=== PATIENT | male | born 1995 | race Caucasian/White ===

== ENCOUNTER 2025-04-11 07:48 | Day surgery (SDC) | payer OTHER, SELFPAY ==
--- NOTE | ~2025-04-11 | XR_ITS ---
XR fluoroscopy no charge Indication:Left L5-S1 transforaminal epidural steroid injection TECHNIQUE: Fluoroscopy used during Left L5-S1 transforaminal epidural steroid injection performed by [Adam Sánchez MD] on 04/11/2025. 32 seconds of fluoroscopy with 3 fluoroscopic images capture d. FINDINGS: Correlate with procedure note. IMPRESSION: Fluoroscopy used during Left L5-S1 transforaminal epidural steroid injection. Reviewed, dictated and finalized at location A.
--- OUTSIDE RECORDS SUMMARY | 2025-04-11 08:00 | XMS_ITS | Clinical Summary ---
Author Organization [facility] Address [address] [place] [address] Care Team Providers Care License Registration Examiner Name Role Phone Nichole Guerrero CARLI Primary Care Provider [phone] Allergies Active Allergy Reactions Criticality Noted Date Comments Lisinopril Rash Low 09/25/2021 Medications triamcinolone 0.1 % ointmentIndicatio ns:Eczema, dyshidrotic Apply topically 2 (two) times daily. 30 g 2 06/13/20 19 Active ondansetron 4 MG disintegrating tabletIndications :Influenza Take 1 tablet (4 mg total) by mouth every 6 (six) hours as needed for Nausea. 20 tablet 10/05/19 20 Active lisinopril 10 MG tabletIndications :Essential hypertension Take 1 tablet (10 mg total) by mouth daily. 90 tablet 3 04/23/20 21 Active albuterol (2.5 MG/3ML) 0.083% nebulizer solutionIndicatio ns:Wheezing Take 3 mLs (2.5 mg total) by nebulization every 4 (four) hours as needed for Wheezing. 360 mL 11 05/03/20 21 Active colchicine 0.6 MG tabletIndications :Acute gout involving toe, unspecified cause, unspecified laterality Take 1 tablet (0.6 mg total) by mouth see administration instructions. Take two tablets now and one in a hour 3 tablet 1 09/01/20 21 Active fluticasone-salme terol (ADVAIR DISKUS) 100-50 MCG/ACT inhalerIndication s:Mild intermittent asthma without complication (HHS/HCC),Post-CO VID chronic cough Inhale 1 puff into the lungs 2 (two) times daily. 60 each 11 06/09/20 23 Active Albuterol-Budeson harvey (AIRSUPRA) 90-80 MCG/ACT AerosolIndication s:Wheezing,Mild intermittent asthma with acute exacerbation (HHS/HCC) Inhale 2 Inhalations into the lungs 6 (six) times daily. As needed for wheezing or sob 10.7 g 05/05/20 24 Active methocarbamol (ROBAXIN) 750 MG TabIndications:Ac taqueria bilateral low back pain with right-sided sciatica Take 1-2 tablets (750-1,500 mg total) by mouth 3 (three) times daily as needed (muscle spasms). 90 tablet 1 06/14/20 24 Active busPIRone (BUSPAR) 30 MG tabletIndications :Anxiety Take 1 tablet (30 mg total) by mouth daily. 90 tablet 3 10/03/19 25 Active lamoTRIgine (LAMICTAL) 150 MG tabletIndications :Anxiety Take 1 tablet (150 mg total) by mouth 2 (two) times daily. 180 tablet 3 10/03/19 25 Active cyclobenzaprine (FLEXERIL) 5 MG tabletIndications :Chronic left-sided low back pain with left-sided sciatica Take 1-2 tablets (5-10 mg total) by mouth nightly as needed for Muscle Spasms. 30 tablet 02/19/20 25 Active methylPREDNISolon e, VAHE, (MEDROL DOSEPAK) 4 MG tabletIndications :Chronic left-sided low back pain with left-sided sciatica Take 1 tablet (4 mg total) by mouth see administration instructions. 6 TABLETS ON DAY ONE, 5 TABLETS DAY TWO, 4 TABLETS DAY THREE, 3 TABLETS DAY FOUR, 2 TABLETS DAY FIVE, AND 1 TABLET DAY SIX 1 each 03/22/20 25 Active predniSONE (DELTASONE) 10 mg tabletIndications :Chronic left-sided low back pain with left-sided sciatica Take 1 tablet (10 mg total) by mouth see administration instructions. Take 40 mg for 3 days, 30 mg for 3 days, 20 mg for 3 days, and 10 mg for 3 days. 30 tablet 02/19/20 25 025 Disconti nukane(The rapy complete d) Active Problems Problem Noted Date Diagnosed Date Class 2 severe obesity due t o excess calories with serious comorbidity and body mass index (BMI) of 39.0 to 39.9 in adult 02/21/2025 Chronic left-sided low back pain with left-sided sciatica 02/18/2025 Essential hypertension 09/26/2021 Hyperlipidemia 12/25/2016 Vitamin D deficiency 12/25/2016 Benign essential hypertension 12/03/2016 Bipolar disorder with depression ([facility]/ [facility]) 12/03/2016 Drug addiction in remission ([facility]) Generalized anxiety disorder 12/03/2016 History of drug abuse 12/03/2016 Encounters Date Type Department Care Team Description 03/29/2025 Scan HEALTH INFO SRVCS Scanned, Doc Med Group 03/22/2025 Orders Only [facility] Internal [address] [address] Nichole Guerrero FNP 03/15/2025 1:47 PM CDT - 03/15/2025 11:59 PM CDT Hospital Encounter [facility] [address] [place] [address] Nichole Guerrero FNP Discharge Disposition: Home or Self Care (Routine Discharge) 03/15/2025 Results Follow-Up [facility] Internal [address] [address] Nichole Guerrero FNP MRI LUMB SPINE WO CON 03/15/2025 Travel 03/08/2025 Orders Only [facility] Internal [address] [address] Nichole Guerrero FNP 02/21/2025 Results Follow-Up [address] [address] Nichole Guerrero, CARLI URINALYSIS AUTO DIP, MAGNESIUM, FOLIC ACID SERUM, Additional followed-up results: 7 02/18/2025 1:00 PM CDT Office Visit [facility] Internal [address] [address] Nichole Guerrero FNP Low Back Pain (Patient presenting to office today c/o lower back pain primarily on the left side that radiated to the hip and into the knee- onset intermittent for about 6 months sx are getting worse- pain rating 6/10- describes pain as achy with random sharp pains denies any abnormal urinary sx ) 02/18/2025 Scan HEALTH INFO SRVCS Scanned, Doc Med Group 02/18/2025 Travel 02/16/2025 4:58 PM CDT - 02/16/2025 11:59 PM CDT Hospital Encounter [facility] [address] [place] [address] Nichole Guerrero FNP Discharge Disposition: Home or Self Care (Routine Discharge) 02/16/2025 Travel 02/08/2025 Orders Only [facility] Family & Internal Medicine [address] [place] [address] Nichole Guerrero FNP from Last 3 Months Immunizations Immunization Administration Dates Next Due Fluzone 6 Months+ Quad (0.5 mL Prefilled Syringe ) 09/25/2021 PFIZER COVID-19 (ORIGINAL FO RMULATION, PURPLE CAP) mRNA, LNP-S, PF, 30 MCG/0.3 ML DOSE 06/11/2021,05/21/2021 Tdap (Adacel) 09/25/2021 Family History Medical History Relation Comments Asthma Daughter Heart Disease Maternal Grandfather Hypertension Maternal Grandfather Alcohol Abuse Mother Depression Mother Drug Abuse Mother Mental Health Mother Relation Status Comments Daughter Alive Maternal Grandfather Alive Mother Alive Social History Tobacco Use Types Packs/Day Years Used Date Smoking Tobacco: Former Electronic Cigarettes Smokeless Tobacco: Never Tobacco Cessation:Counseling Given: Not Answered Alcohol Use Standard Drinks/Week Comments No 0 (1 standard drink = 0.6 oz pur e alcohol) AUDIT-C Answer Date Recorded Frequency of Alcohol Consumption Never 05/25/2019 Average Number of Drinks Not on file 019 Frequency of Binge Drinking Not on file 11/2018 PHQ-2 Answer Date Recorded Patient Health Questionnaire-2 Score 0 02/18/2025 Sex and Gender Information Value Date Recorded Sex Assigned at Male 02/18/2025 1:08 PM CDT Legal Sex Male 4:32 PM CDT Gender Identity Male 02/18/2025 1:08 PM CDT Sexual Orientation Straight 02/18/2025 1: 08 PM CDT Last Filed Vital Signs Vital Sign Reading Time Taken Comments Blood Pressure 138/88 02/18/2025 1:15 PM CDT Pulse 62 02/18/2025 1:15 PM CDT Temperature 37.3 C (99.1 F) 02/18/2025 1:15 PM CDT Respiratory Rate 18 02/18/2025 1:15 PM CDT Oxygen Saturation 98% 02/18/2025 1:15 PM CDT Inhaled Oxygen Concentration - - Weight 118.8 kg (262 lb) 02/18/2025 1:15 PM CDT Height 172.7 cm (5' 8) 02/18/2025 1:15 PM CDT Body Mass Index 39.84 02/18/2025 1:15 PM CDT Plan of Treatment Health Maintenance Due Date Last Done Comments Hepatitis B Vaccines (1 of 3 - 19+ 3-dose series) 2013 HPV Vaccines (1 - 3-dose SCD M series) 2021 Annual Physical 02/18/2026 02/18/2025 COVID-19 Vaccine (3 - 2023-2 5 season) 2026 06/11/2021, 05/21/2021 Postponed from 2024 (Patient Refused) Pneumococcal Vaccine: Pediatrics (0 to 5 Years) and At-Risk Patients (6 to 49 Years) (1 of 2 - PCV) 02/18/2026 Postponed from 09/2012 (Patient Refused) DTaP, Tdap and Td Vaccines ( 2 - Td or Tdap) 09/25/2031 09/25/2021 Hepatitis C Completed 09/25/2021 PHQ-2 (Physician [place]) Completed 02/18/2025 Meningococcal B Vaccine Aged Out No l onger eligible based on patient's age to complete this topic Meningococcal Vaccine Aged Out No nivia nedra eligible based on patient's age to complete this topic RSV Immunizations Under 20 Months Aged Out No longer eligible b ased on patient's age to complete this topic Procedures Procedure Name Priority Date/Time Associated Diagnosis Comments MRI LUMB SPINE WO CON DENG 03/15/2025 2:31 PM CDT Chronic left-sided low back pain with left-sided sciatica Weakness of left lower extremity CBC W/DIFF AUTOMATED Routine 02/18/2025 2:04 PM CDT Essential hypertension Mixed hyperlipidemia LIPID PANEL Routine 02/18/2025 2:04 PM CDT Essential hypertension Mixed hyperlipidemia TSH W/REFLEX Routine 02/18/2025 2:04 PM CDT Essential hypertension Mixed hyperlipidemia URIC ACID BLOOD Routine 02/18/2025 2:04 PM CDT Essential hypertension Mixed hyperlipidemia VITAMIN D, 25 OH Routine 02/18/2025 2:04 PM CDT Vitamin D deficiency COMPREHENSIVE METABOLIC PANEL Routine 02/18/2025 2:04 PM CDT Essential hypertension Mixed hyperlipidemia VITAMIN B-12 Routine 02/18/2025 2:04 PM CDT Generalized anxiety disorder FOLIC ACID SERUM Routine 02/18/2025 2:04 PM CDT Generalized anxiety disorder MAGNESIUM Routine 02/18/2025 2:04 PM CDT Essential hypertension Generalized anxiety disorder URINALYSIS AUTO DIP Routine 02/18/2025 1 :56 PM CDT Chronic left-sided low back pain with left-sided sciatica COLLECTION VENOUS BLOOD VENIPUNCTURE Routine 02/18/2025 1:07 PM CDT Essential hypertension Mixed hyperlipidemia Vitamin D deficiency Generalized anxiety disorder INJECT TRIGGER POINT, 1 OR 2 Routine 02/18/2025 1:00 PM CDT Chronic left-sided low back pain with left-sided sciatica XR LUMB SPINE 3V Routine 02/16/2025 5:06 PM CDT Chronic midline low back pain with left-sided sciatica HEPATITIS C ANTIBODY Routine 09/25/2021 2:11 PM DOG DAYCARE PROVIDER Need for hepatitis C screening test from Last 3 Months or Most Recently Relevant to Health Maintenance Results * MRI LUMB SPINE WO CON (03/15/2025 2:31 PM CDT) Anatomical Region Laterality Modality Spine Magnetic Resonan ce 03/15/2025 2:49 PM CDT Impressions 03/15/2025 2:57 PM CDT IMPRESSION: Mild to moderate multilevel lumbar spondylosis greatest at L5-S1, as described above. Ordered By: NICHOLE GUERRERO Interpreted By: Vladimir Caban MD, 03/15/2025 2:49 PM Narrative 03/15/2025 2:57 [place] [address] Examination: MRI LUMB SPINE WO CON, 03/15/2025 2:30 PM. Technique: Multiplanar multisequence magnetic resonance images of the lumbar spine were obtained without intravenous contrast. Clinical history: Lumbago with sciatica, left side, Other chronic pain, Other symptoms and signs involving the musculoskeletal systemlow back pain with radiculopathy, worsening Comparison: Lumbar spine radiographs 02/16/2025 Findings: There are 5 nonrib-bearing lumbar-type vertebral bodies. The lumbar vertebral bodies and facets are otherwise well aligned. There is 0.4 cm of retrolisthesis of L5 on S1. There is intervertebral disc desiccation at L5-S1 with height loss. The conus medullaris terminates at L1, normal. There is a normal distribution of the cauda equina within the thecal sac. No abnormal prevertebral or paraspinal soft tissue swelling. L1-2: No significant spinal canal or neural foraminal stenosis. L2-3: No significant spinal canal stenosis. Mild facet hypertrophy. Mild bilateral neural foraminal stenosis. L3-4: No significant spinal canal stenosis. Moderate facet hypertrophy. Mild to moderate bilateral neural foraminal stenosis. L4-5: No significant spinal canal stenosis. Moderate facet hypertrophy. Mild to moderate bilateral neural foraminal stenosis. L5-S1: Disc bulge with left paracentral disc protrusion impressing the ventral thecal sac. Moderate left lateral recess narrowing. Moderate facet hypertrophy. Moderate to severe left neural foraminal stenosis. Moderate right neural foraminal stenosis. Procedure Note Vladimir Caban MD - 03/15/2025 [facility] [address] [place] [address] Examination: MRI LUMB SPINE WO CON, 03/15/2025 2:30 PM. Technique: Multiplanar multisequence magnetic resonance images of thelumbar spine were obtained without intravenous contrast. Clinical history: Lumbago with sciatica, left side, Other chronic pain,Other symptoms and signs involving the musculoskeletal systemlow back painwith radiculopathy, worsening Comparison: Lumbar spine radiographs 02/16/2025 Findings: There are 5 nonrib-bearing lumbar-type vertebral bodies. The lumbarvertebral bodies and facets are otherwise well aligned. There is 0.4 cm ofretrolisthesis of L5 on S1. There is intervertebral disc desiccation atL5-S1 with height loss. The conus medullaris terminates at L1, normal.There is a normal distribution of the cauda equina within the thecal sac.No abnormal prevertebral or paraspinal soft tissue swelling. L1-2: No significant spinal canal or neural foraminal stenosis. L2-3: No significant spinal canal stenosis. Mild facet hypertrophy. Mildbilateral neural foraminal stenosis. L3-4: No significant spinal canal stenosis. Moderate facet hypertrophy.Mild to moderate bilateral neural foraminal stenosis. L4-5: No significant spinal canal stenosis. Moderate facet hypertrophy.Mild to moderate bilateral neural foraminal stenosis. L5-S1: Disc bulge with left paracentral disc protrusion impressing theventral thecal sac. Moderate left lateral recess narrowing. Moderate facethypertrophy. Moderate to severe left neural foraminal stenosis. Moderateright neural foraminal stenosis. IMPRESSION: Mild to moderate multilevel lumbar spondylosis greatest at L5-S1, asdescribed above. Ordered By: NICHOLE GUERRERO Interpreted By: Vladimir Caban MD, 03/15/2025 2:49 PM us Nichole Guerrero [facility] MRI Final Result * TSH W/REFLEX (02/18/2025 2:04 PM CDT) TSH 1.103 0.358 - 3.740 uIU/ML 02/18/2025 7:52 PM CDT [facility] 02/18/2025 2:04 PM CDT [facility] Final Result Performing Organization Address City/[facility]/ZIP Co de Phone Number [facility] [address] [place] [address], [place] [phone] * VITAMIN B-12 (02/18/2025 2:04 PM CDT) VITAMIN B12 S/P/B 867 193 - 986 PG/ML 02/18/2025 7:52 PM CDT [facility] 02/18/2025 2:04 PM CDT [facility] Final Result Performing Organization Address City/[facility]/ZIP Co de Phone Number [facility] [address] [place] [address], [place] [phone] * COMPREHENSIVE METABOLIC PANEL (02/18/2025 2:04 PM CDT) SODIUM S/P/B 141 136 - 145 MMOL/L 02/18/2025 7:52 PM CDT [facility] POTASSIUM S/P/B 4.4 3.5 - 5.1 MMOL/L 02/18/2025 7:52 PM CDT [facility] CHLORIDE S/P/B 103 98 - 107 MMOL/L 02/18/2025 7:52 PM CDT [facility] CO2 29.0 21 - 32 MMOL/L 02/18/2025 7:52 PM CDT [facility] GLUCOSE 90 70 - 99 MG/DL 02/18/2025 7:52 PM T [facility] BUN 14 7 - 18 MG/DL 02/18/2025 7:52 PM T [facility] CREATININE S/P/B 0.89 0.70 - 1.30 MG/DL 02/18/2025 7:52 PM T [facility] CALCIUM S/P/B 9.9 8.4 - 10.5 MG/DL 02/18/2025 7:52 PM T [facility] BILIRUBIN TOTAL S/P/B 0.5 0.2 - 1.0 MG/DL 02/18/2025 7:52 PM T [facility] ALKALINE PHOSPHATASE S/P/B 60 45 - 115 U/L 02/18/2025 7:52 PM T [facility] AST 17 15 - 37 U/L 02/18/2025 7:52 PM CDT [facility] ALT 38 16 - 63 U/L 02/18/2025 7:52 PM T [facility] TOTAL PROTEIN S/P/B 7.4 6.4 - 8.2 G/DL 02/18/2025 7:52 PM T [facility] ALBUMIN S/P/B 4.4 3.4 - 5.0 G/DL 02/18/2025 7:52 PM T [facility] ANION GAP 9.0 5 - 15 MMOL/L 02/18/2025 7:52 PM T [facility] Comment:REFERENCE RANGE NOT ESTABLISHED OSMOLALITY (CALC) 292 MOSM/KG 025 7:52 PM T [facility] Comment:REFERENCE RANGE NOT ESTABLISHED GFR ESTIMATE >90 >90 ML/MIN/1. 73 M2 02/18/2025 7:52 PM T [facility] GFR NOTES GFR REFERENCE S: 02/18/2025 7:52 PM CDT [facility] Comment: THE ESTIMATED GFR IS CALCULATED USING THE 2020 CKD-EPI EQUATION. THE FOLLOWING CATEGORIES FOR GRADING RENAL FUNCTION ARE RECOMMENDED BY THE INTERNATIONAL SOCIETY OF NEPHROLOGY (KDIGO 2012 CLINICAL PRACTICE GUIDELINE). G1,NORMAL OR HIGH: >89 ml/min/1.73 m2 G2,MILDLY DECREASED: 60-89 ml/min/1.73 m2 G3A,MILDLY TO MODERATELY DECREASED: 45-59 ml/min/1.73 m2 G3B,MODERATELY TO SEVERELY DECREASED: 30-44 ml/min/1.73 m2 G4,SEVERELY DECREASED: 15-29 ml/min/1.73 m2 G5,KIDNEY FAILURE: <15 ml/min/1.73 m2 02/18/2025 2:04 PM CDT Nichole Guerrero [employer] LABORATORY Final Result [facility] [address] [place] [address], * (ABNORMAL) LIPID PANEL (02/18/2025 2:04 PM CDT) CHOLESTEROL 274(H) <200 MG/DL 02/18/2025 7:52 PM CDT [facility] TRIGLYCERIDES 259(H) <150 MG/DL 02/18/2025 7:52 PM CDT [facility] HDL 50 >40 MG/DL 02/18/2025 7:52 PM CDT [facility] LDL-C 172(H) <100 MG/DL 02/18/2025 7:52 PM CDT [facility] VLDL CALCULATION 52(H) 5 - 28 MG/DL 02/18/2025 7:52 PM CDT [facility] CHOL/HDL RATIO 5.5(H) 0.0 - 4.0 02/18/2025 7:52 PM CDT [facility] LDL/HDL 3.4(H) 0.41 - 2.13 02/18/2025 7:52 PM CDT [facility] NON HDL CHOLESTEROL 224(H) <140 MG/DL 02/18/2025 7:52 PM CDT [facility] 02/18/2025 2:04 PM CDT Nichole [facility] LABORATORY Final Result [facility] [address] [place] [address], [place] [phone] * FOLIC ACID SERUM (02/18/2025 2:04 PM CDT) Pathologist [facility] FOLATE 9.6 8.6 - 58.9 NG/ML 02/18/2025 7:51 PM CDT [facility] 02/18/2025 2:04 PM CDT Nicholecornell [facility] LABORATORY Final Result Performing Organization Address City/[facility]/ZIP Co de Phone Number [address] [address], [place] [phone] * (ABNORMAL) CBC W/DIFF AUTOMATED (02/18/2025 2:04 PM CDT) WBC 6.59 4.00 - 10.80 x10'3/uL 02/18/2025 7:11 PM CDT [facility] RBC 5.78 4.50 - 6.10 x10'6/uL 02/18/2025 7:11 PM CDT [facility] HGB 15.5 13.0 - 18.0 G/DL 02/18/2025 7:11 PM CDT [facility] HCT 46.2 37.0 - 52.0 % 02/18/2025 7:11 PM CDT [facility] MCV 79.9 78.0 - 100.0 FL 02/18/2025 7:11 PM CDT [facility] MCH 26.8(L) 27.0 - 31.0 PG 02/18/2025 7:11 PM CDT [facility] MCHC 33.5 33.0 - 36.0 G/DL 02/18/2025 7:11 CDT [facility] RDW 12.4 11.5 - 14.5 % 02/18/2025 7:11 PM CDT [facility] PLT 260 150 - 350 x10'3/uL 02/18/2025 7:11 PM CDT [facility] MPV 10.0 7.4 - 10.4 FL 02/18/2025 7:11 PM CDT [facility] DIFFERENTIAL TYPE AUTOMATED DIFFERENTIAL 02/18/2025 7:11 PM CDT [facility] NEUTROPHILS % 59.0 % 02/18/2025 7:11 PM CDT [facility] LYMPHOCYTES % 33.4 % 02/18/2025 7:11 PM CDT [facility] MONOCYTES % 5.8 % 02/18/2025 7:11 PM CDT [facility] EOSINOPHILS % 1.2 % 02/18/2025 7:11 PM CDT [facility] BASOPHILS % 0.3 % 02/18/2025 7:11 PM CDT [facility] IMMATURE GRANS % 0.3 % 02/18/2025 7:11 PM CDT [facility] ABS. NEUTROPHILS 3.89 1.60 - 8.30 x10'3/uL 02/18/2025 7:11 PM CDT [facility] ABS. LYMPHOCYTES 2.20 0.80 - 4.70 x10'3/uL 02/18/2025 7:11 PM CDT [facility] ABS. MONOCYTES 0.38 0.00 - 1.50 x10'3/uL 02/18/2025 7:11 PM CDT [facility] ABS. EOSINOPHILS 0.08 0.00 - 0.40 x10'3/uL 02/18/2025 7:11 PM CDT [facility] ABS. BASOPHILS 0.02 0.00 - 0.20 x10'3/uL 02/18/2025 7:11 PM CDT [facility] ABS. IMMATURE GRANULOCYTES 0.02 0.00 - 0.03 x10'3/uL 02/18/2025 7:11 PM CDT [facility] 02/18/2025 2:04 PM CDT Nichole Guerrero [facility] LABORATORY Final Result Performing Organization Address [facility]/ZIP Co de Phone Number [facility] [address] [place] [address], * VITAMIN D, 25 OH (02/18/2025 2:04 PM CDT) VITAMIN D 25 HYDROXY TOTAL S/P/B 33.1 30 - 100 NG/ML 02/18/2025 7:52 PM CDT [facility] Comment: DEFICIENT <20 INSUFFICIENT 20-30 SUFFICIENT 30-100 02/18/2025 2:04 PM CDT Nichole Westerly [facility] LABORATORY Final Result Performing Organization Address City/[facility] Co de Phone Number [facility] [address] [place] [address], * MAGNESIUM (02/18/2025 2:04 PM CDT) MAGNESIUM 2.0 1.8 - 2.4 MG/DL 02/18/2025 7:52 PM CDT [facility] 02/18/2025 2:04 PM CDT Nichole Guerrero [facility] LABORATORY Final Result [facility] [address] [place] [address], * URIC ACID BLOOD (02/18/2025 2:04 PM CDT) URIC ACID 5.8 3.5 - 7.2 MG/DL 02/18/2025 7:32 PM CDT [facility] 02/18/2025 2:04 PM CDT Nichole [facility] LABORATORY Final Result Performing Organization Address City/[facility]/ZIP Co de Phone Number [facility] [address] [place] [address], [place] [phone] * URINALYSIS AUTO DIP (02/18/2025 1:56 PM CDT) COLOR (U) PALE YELLOW YELLOW [facility] TRANSPARENCY CLEAR CLEAR [facility] GLUCOSE (U) NEGATIVE NEGATIVE MG/DL [facility] BILIRUBIN (U) NEGATIVE NEGATIVE [facility] KETONES MG/DL (U) NEGATIVE NEGATIVE MG/DL [facility] SPECIFIC GRAVITY (U) 1.010 1.001 - 1.035 [facility] BLOOD (U) NEGATIVE NEGATIVE [facility] U PH 6.5 5.0 - 9.0 [facility] PROTEIN (U) NEGATIVE NEGATIVE mg/dL [facility] UROBILINOGEN 0.2 0.2 - 1.0 EU/dL = mg/dL [facility] NITRITES NEGATIVE NEGATIVE MG/DL [facility] LEUKOCYTES (U) NEGATIVE NEGATIVE [facility] URINE SPECIMEN OBTAINED BY CLEAN CATCH PROCEDURE / Unknown 02/18/2025 1:56 PM CDT Nichole BOYCE URINE ORDERABLES Final Result -[facility] [address] [place] [address], [place] * INJECT TRIGGER POINT, 1 OR 2 (02/18/2025 1:00 PM CDT) Nichole Pena FNP - 02/18/2025 1:00 PM CDT CARLI Dye 02/21/2025 11:46 AM INJECT TRIGGER POINT, 1 OR 2 Date/Time: 02/18/2025 1:00 PM Performed by: CARLI Dye Authorized by: CARLI Dye Consent: Consent obtained: Written Consent given by: Patient Risks, benefits, and alternatives were discussed: yes Risks discussed: Infection, bleeding and pain Alternatives discussed: No treatment, delayed treatment and observation [place] protocol: Procedure explained and questions answered to patient or proxy's satisfaction: yes Relevant documents present and verified: yes Test results available: yes Imaging studies available: yes Required blood products, implants, devices, and special equipment available: yes Site/side marked: yes Immediately prior to procedure, a time out was called: yes Patient identity confirmed: Verbally with patient Pre-procedure details: Skin preparation: Chlorhexidine Preparation: Patient was prepped and draped in the usual sterile fashion Sedation: Sedation type: None Anesthesia: Anesthesia method: None (ethinyl cholride spray applied topically) Procedure specific details: Area cleansed with a chlorhexidine scrub Injection made with a 25-gauge 1-1/2 inch needle that included 40 mg of Kenalog and 2 mL of bupivacaine Patient tolerated procedure well Band-Aid applied to the area of injection Post-procedure details: Procedure completion: Tolerated well, no immediate complications Nichole BOYCE PROCEDURES-UNRESULTED Final Re sult * XR LUMB SPINE 3V (02/16/2025 5:06 PM CDT) Anatomical Region Laterality Modality Spine Radiographic Dian ging 02/17/2025 2:28 AM CDT Impressions 02/17/2025 2:29 AM CDT IMPRESSION:===== 1. No acute osseous abnormalities by plain film evaluation Referred By: Interpreted By: Kevin Li MD, 02/17/2025 2:28 AM Narrative 02/17/2025 2:29 AM CDT [address] [place] [address] Examination: Lumbar Spine, 3 views Exam Date/Time: 02/16/2025 4:59 PM Reason For Exam: low back pain with sciatica No known injury. Pain for one year. Comparison: None Technique: AP, lateral, and spot lumbosacral lateral views of the lumbar spine are obtained. Findings: There are 5 nonrib-bearing lumbar-type vertebral bodies. Vertebral body heights and alignment are preserved. No acute fracture or dislocation. No destructive osseous lesions. Overlying bowel gas pattern nonobstructive. Sacral struts intact. SI joints unremarkable. ===== Procedure Note Kevin Li MD - 02/17/[address] [place] [address] Examination: Lumbar Spine, 3 views Exam Date/Time: 02/16/2025 4:59 PM Reason For Exam: low back pain with sciatica No known injury. Pain for one year. Comparison: None Technique: AP, lateral, and spot lumbosacral lateral views of the lumbarspine are obtained. Findings: There are 5 nonrib-bearing lumbar-type vertebral bodies.Vertebral body heights and alignment are preserved. No acute fracture ordislocation. No destructive osseous lesions. Overlying bowel gas patternnonobstructive. Sacral struts intact. SI joints unremarkable. ===== IMPRESSION:===== 1. No acute osseous abnormalities by plain film evaluation Referred By: Interpreted By: Kevin Li MD, 02/17/2025 2:28 AM Nichole Guerrero GAS COMPRESSOR OPERATOR GENERAL IMAGING Final Result * HEPATITIS C ANTIBODY (09/25/2021 2:11 PM DOG DAYCARE PROVIDER) HEPATITIS C AB NON-REACTI VE NON-REACT CHALO 09/25/2021 10:18 PM DOG DAYCARE PROVIDER [facility] Comment: ANTIBODIES TO HCV NOT DETECTED. DOES NOT EXCLUDE THE POSSIBILITY OF EXPOSURE TO HCV. 09/25/2021 2:11 PM DOG DAYCARE PROVIDER Nichole Guerrero GAS COMPRESSOR OPERATOR LABORATORY Final Result [facility] [address] [place] [address], [id number] from Last 3 Months or Most Recently Relevant to Health Maintenance Insurance [facility] [employer] Care Teams License Registration Examiner Relationship Specialty Start Date End Date Nichole Guerrero FNP [address] [place] [id number] PCP - General Nurse Practitioner Family 05/25/19
--- OUTSIDE RECORDS SUMMARY | 2025-04-11 08:00 | XMS_ITS | Encounter Summary ---
Author Organization [facility] Address [address] [place] [address] Care Team Providers Care Meteorological Observer Name Role Phone Katya Dior Primary Care Provider [phone] Reason for Referral * Consultation/Treatment (Urgent) - Authorized Specialty Diagnoses / Procedures Referred By Contlizz t Referred To Contact PAIN MANAGEMENT Diagnoses Abnormal MRI, spine Bulging lumbar disc Procedures OFFICE/OUTPATIENT NEW LOW MDM 30-44 MINUTES OFFICE/OUTPT VISIT,NEW,LEVL IV OFFICE/OUTPT VISIT,NEW,LEVL V OFFICE/OUTPT VISIT,EST,LEVL III OFFICE/OUTPT VISIT,EST,LEVL IV OFFICE/OUTPT VISIT,EST,LEVL V Katya Dior FNP [address] [place] [address] Phone: tel: fax: Adam Sánchez MD [address] [place] [address] Phone: tel: fax: Referral ID Status Reason Start Date Expiration Date Visits Requested Visits Authorized [id number] Authorized Patient Preference 03/16/2025 03/16/2026 99 99 Encounter Details Date Type Department Care Team (Late st Contact Info) Description 03/15/2025 Results Follow-Up [facility] Family & Internal Medicine - [address] [phone] Katya Dior FNP [facility] [place] [address] MRI LUMB SPINE WO CON Social History Tobacco Use Types Packs/Day Years Used Date Smoking Tobacco: Former Electronic Cigarettes Smokeless Tobacco: Never Alcohol Use Standard Drinks/Week Comments No 0 [...] Orientation Straight 02/18/2025 1: 08 PM CDT documented as of this encounter Progress Notes * Renea Nelson MA - 03/16/2025 11:16 AM CDT Left message for patient to return call. PM referral pended March 16, 2025 , Renea Nelson MA * CARLI Dye - 03/15/2025 4:14 PM CDT Needed mri for pain management referral Has disc bulge L5-S1 with protrusion impression the ventral thecal sac, moderate to severe left foraminal stenosis , this is causing his pain- will need to place urgent pain management referral if not already placed. documented in this encounter Plan of Treatment Scheduled Referrals Name Type Priority Associated Diagnoses Orde r Schedule Ambulatory Referral to Pain Management Referral Routine Abnormal MRI, spine Bulging lumbar disc Ordered: 03/16/2025 documented as of this encounter Visit Diagnoses Diagnosis Abnormal MRI, spine- Primary Nonspecific (abnormal) findings on radiological and other examination of musculoskeletal system Bulging lumbar disc Displacement of lumbar intervertebral disc without myelopathy documented in this encounter Care Teams Meteorological Observer Relationship Specialty Start Date End Date Katya Dior FNP [address] [place] [id number] PCP - General Nurse Practitioner Family 05/25/19 documented as of this encounter
--- OUTSIDE RECORDS SUMMARY | 2025-04-11 08:00 | XMS_ITS | Encounter Summary ---
Author Organization [facility] Address [address] [place] [id number] Care Team Providers Care Machine Precision Etcher Name Role Phone Katya Dior Primary Care Provider [phone] Encounter Details Date Type Department Care Team (Late st Contact Info) Description 02/21/2025 Results Follow-Up [facility] Family & Internal Medicine [place] [id number] [place] [phone] Katya Dior FNP [facility] [place] [address] URINALYSIS AUTO DIP, MAGNESIUM, FOLIC ACID SERUM, Additional followed-up results: 7 Social History Tobacco Use Types Packs/Day Years [...] as of this encounter Progress Notes * CARLI Dye - 02/21/2025 1:15 PM CDT Discussed lab results over the telephone with the patient All questions answered documented in this encounter Plan of Treatment Not on file documented as of this encounter Visit Diagnoses Not on filedocumented in this encounter Care Teams Machine Precision Etcher Relationship Specialty Start Date End Date Katya Dior FNP [address] [place] [phone] PCP - General Nurse Practitioner Family 05/25/19 documented as of this encounter
--- NOTE | 2025-04-11 08:11 | WPDHPUPDATE1 ---
History and Physical Update Update Date/Time: 04/11/25 08:11 History and Physical has been reviewed, including an updated exam of the patient. There are NO changes in the patient's condition. Risks, benefits, and alternatives have been discussed and questions answered. Patient agrees to proceed with procedure.
--- NOTE | 2025-04-11 08:12 | P.OP_ITS ---
Procedure Note - Detailed Date of Procedure 04/11/25 Pre-op Diagnosis Lumbar Spinal Stenosis Post-op Diagnosis Same Procedure Performed Left Lumbosacral Transforaminal Epidural Steroid Injection under Fluoroscopic Guidance and with Contrast Control at L5-S1. S1-2. Surgeon Adam Sánchez MD Anesthesia Local Description of Procedure INFORMED CONSENT: Risks, benefits and alternatives to the procedure were discussed in detail with the patient who expressed explicit understanding and consent to proceed. Patient was informed verbally and in written form regarding the risks associated with the procedure including the low risk of serious infection, bleeding/bruising, allergic reaction, nerve or organ injury, paralysis, procedural site pain or discomfort, worsening pain and/or mobility, failure to treat and/or disfigurement. The patient expressed explicit understanding and consent to proceed. All materials required for the procedure were available prior to procedure start. Site and side was marked prior to procedure and confirmed in the presence of the patient. PROCEDURE IN DETAIL: The patient was brought to the procedural suite and placed in the prone position. Patient was made comfortable with use of pillows under the head/chest, hips and ankles. Skin overlying the injection site was prepared broadly with ChloraPrep applicator and draped in a sterile manner. Aseptic technique was employed throughout. The endplates of the vertebral body at the site of interest were aligned in the AP view. Ipsilateral oblique angulation was utilized to better visualize the neuroforamen of interest. Local anesthesia was established by infiltration with approximately 5 mL of 0.5% PF lidocaine via a 1-1/2 inch 27-gauge needle. A 22-gauge 5.0 inch Uri (pencil point) spinal needle was advanced until the needle approached the 6 o'clock position on the pedicle just superior to the exiting nerve root. on the left at L5-S1. Lateral view was utilized to confirm appropriate position of the needle tip within the superior and posterior portion of the respective foramen. In an AP view, 1 mL of Omnipaque 300 contrast medium was injected after negative aspiration for CSF, blood or other bodily fluid, showing appropriate neurogram without evidence of intravascular or intrathecal spread of contrast. Digital subtraction imaging was used with an additional 1ml of the same contrast medium to confirm absence of intravascular contrast spread. A 1mL solution containing 3 mg of betamethasone was injected after negative repeat aspiration. Appropriate spread of the injectate was confirmed with washout of previously injected contrast. No parasthesias were elicited. Needle was removed completely intact without difficulty. The same exact procedure was repeated for all remaining levels on the ipsilateral side, left S1-2 posterior neuroforamen, modified as necessary to a ccommodate for the new target location with identical findings and results and no evidence of complication. Images were saved and documented in the patient chart. Patient's skin was cleaned and sterile bandage applied. The patient tolerated the procedure well. The patient was transported to the recovery area in stable condition where they were observed for an appropriate amount of time prior to discharge, without evidence of complication. The patient was instructed to avoid excessive activity for the next 48 hours, including climbing and frequent use of stairs. Showers only for 48 hours. They were instructed not to drive or operate heavy machinery for 24 hours. They are to monitor for severe headaches, fevers, chills, night sweats, erythema/swelling at the site or any other signs of infection, bleeding/bruising, bowel or bladder changes as well as new pain, weakness or numbness in the upper or lower extremity. Should they notice these changes, they are instructed to call our office immediately or report directly to the nearest Emergency Department if no answer or if after posted office hours. COMPLICATIONS: None COMMENTS: None CONTRAST WASTED: 26 mL Omnipaque 300. STEROID WASTED: 0 mg of betamethasone. Complications No immediate complications Condition Stable Disposition Same day [facility] Billing Surgery - Charge Forward: Surgery Billing
[2025-04-11 08:21] VITALS: BP 153/116; PULSE 73; RESP 16; TEMP 37.2; O2SAT 99; BMI 38.7
[2025-04-11 09:00] VITALS: BP 161/96; PULSE 71; RESP 8; O2SAT 97
[2025-04-11 09:09] VITALS: BP 152/94; PULSE 64; RESP 12; O2SAT 97
[2025-04-11] MEDS: LIDOCAINE 1% PF INJ 5 ML VIAL 7 ML INFILTRATE (09:14)
[2025-04-11 09:15] VITALS: BP 140/97; PULSE 70; RESP 18; O2SAT 99
[2025-04-11] MEDS: BETAMETHASONE SODIUM PHOSPHATE PF INJ 6 MG/ML VIAL INFILTRATE (09:15)
[2025-04-11] MEDS: LIDOCAINE 2% PF LOCAL INJ 5 ML VIAL 1 ML INFILTRATE (09:16)
== END 2025-04-11 09:30 | disposition home or self-care (01) ==
PROVIDERS: PCP Nurse Practitioner Family; Visit Provider Anesthesiology Pain Medicine
PROC: (CPT 64483; principal; 2025-04-11 08:50)
DX: M48.061 Spinal stenosis, lumbar region without neurogenic claudication (principal)
CPT/HCPCS: 64483; 64484; 99199

== ENCOUNTER 2025-05-24 06:48 | Day surgery (SDC) | payer OTHER, SELFPAY ==
[2025-05-11 12:42] VITALS: BMI 39.8
--- NOTE | ~2025-05-24 | XR_ITS ---
EXAM: XR fluoroscopy no charge - 05/24/2025 8:05 CDT History: 30 years old Male with LEFT INTRA-ARTICULAR SI JT STEROID INJ Fluoroscopy time: 31.6 seconds FINDINGS/ IMPRESSION: Multiple fluoroscopic images of sacroiliac joint injection. Reviewed, dictated and finalized at location N.
[2025-05-24 07:05] VITALS: BP 152/91; PULSE 71; RESP 16; TEMP 36.8; O2SAT 100; BMI 38.8
--- NOTE | 2025-05-24 08:00 | WPDHPUPDATE1 ---
History and Physical Update Update Date/Time: 05/24/25 08:00 History and Physical has been reviewed, including an updated exam of the patient. There are NO changes in the patient's condition. Risks, benefits, and alternatives have been discussed and questions answered. Patient agrees to proceed with procedure.
--- NOTE | 2025-05-24 08:01 | P.OP_ITS ---
Procedure Note - Detailed Date of Procedure 05/24/25 Pre-op Diagnosis Left Sacroiliitis Post-op Diagnosis Same Procedure Performed Left Sacroiliac Joint Steroid Injection under Fluoroscopic Guidance and with Contrast Control. Surgeon Adam Sánchez MD Real Estate Recruiter None Anesthesia Local Description of Procedure INFORMED CONSENT: Risks, benefits and alternatives to the procedure were discussed in detail with the patient who expressed explicit understanding and consent to proceed. Patient was informed verbally and in written form regarding the risks associated with the procedure including the low risk of serious infection, bleeding/bruising, allergic reaction, nerve or organ injury, paralysis, procedural site pain or discomfort, worsening pain and/or mobility, failure to treat and/or disfigurement. The patient expressed explicit understanding and consent to proceed. All materials required for the procedure were available prior to procedure start. Site and side were marked prior to procedure and confirmed in the presence of the patient. PROCEDURE IN DETAIL: The patient was brought to the procedural suite and placed in the prone position. Patient was made comfortable with use of pillows under the head/chest, hips and ankles. Skin overlying the injection site on the affected side(s) was prepared broadly with ChloraPrep applicator and draped in a sterile manner. Aseptic technique was used throughout. The left SI joint was identified in the AP view and contralateral oblique angulation with caudal tilt was utilized to optimize visualization of the inferior and medial joint line representing the posterior portion of the joint. Local anesthesia was established by infiltration with approximately 5 mL of 2% lidocaine via a 1-1/2 inch 27-gauge needle. A 22-gauge 3.5 inch Quincke spinal needle was advanced until the needle entered the inferior third of the joint space approximately 1cm cephalad from its most inferior point. In the AP view, 0.5 mL of Omnipaque 300 contrast medium was injected after negative aspiration for CSF, blood or other bodily fluid, showing appropriate intra-articular spread of contrast without evidence of intravascular, perineural or intrathecal placement. A 1.5 mL solution containing 10 mg of dexamethasone in 0.5% PF bupivacaine was injected after repeat negative aspiration. Appropriate spread of the injectate was confirmed with washout of previous injected contrast. No parasthesias were elicited. Needle was removed completely intact without difficulty. Images were saved and documented in the patient chart. Patient's skin was cleansed and sterile bandage applied. The patient tolerated the procedure well. The patient was transported to the recovery area in stable condition where they were observed for an appropriate amount of time prior to discharge, without evidence of complication. The patient was instructed to avoid excessive activity for the next 48 hours, including climbing and frequent use of stairs. Showers only for 48 hours. They were instructed not to drive or operate heavy machinery for 24 hours. They are to monitor for severe headaches, fevers, chills, night sweats, erythema/swelling at the site or any other signs of infection, bleeding/bruising, bowel or bladder changes as well as new pain, weakness or numbness in the upper or lower extremity. Should they notice these changes, they are instructed to call our office immediately or report directly to the nearest Emergency Department if no answer or if after posted office hours. COMPLICATIONS: None COMMENTS: None CONTRAST WASTED: 29.5 mL Omnipaque 300. Complications No immediate complications Condition Stable Disposition Same day [facility] Billing Surgery - Charge Forward: Surgery Billing
[2025-05-24] MEDS: LIDOCAINE 1% PF INJ 5 ML VIAL INFILTRATE (08:11)
[2025-05-24 08:13] VITALS: BP 157/93; PULSE 72; RESP 13; O2SAT 98
[2025-05-24] MEDS: BUPivacaine HCL 0.5% 10 ML AMP 5 ML INFILTRATE (08:15)
[2025-05-24] MEDS: dexAMETHasone SOD PHOS INJ 10 MG/ML 1 ML VIAL IM (08:16)
[2025-05-24 08:34] VITALS: BP 155/106; PULSE 70; RESP 16; O2SAT 98
== END 2025-05-24 08:40 | disposition home or self-care (01) ==
PROVIDERS: PCP Nurse Practitioner Family; Visit Provider Anesthesiology Pain Medicine
PROC: (CPT 27096; principal; 2025-05-24 07:50)
DX: M46.1 Sacroiliitis, not elsewhere classified (principal)
CPT/HCPCS: 27096; 99199; G0260; J1100

== ENCOUNTER 2025-07-19 08:35 | Day surgery (SDC) | payer OTHER, SELFPAY ==
--- NOTE | ~2025-07-19 | XR_ITS ---
EXAMINATION: XR fluoroscopy no charge DATE: 07/19/2025 10:01 INDICATION: Left L5-S1 and S1 and S2 transforaminal epidural steroid injections TECHNIQUE: A 7 fluoroscopic images of the lumbosacral spine were obtained during pain management procedure performed by Dr. Sánchez. Radiologist was not present for the imaging or procedure. The amount of fluoroscopy time used during this procedure was 0.7 minutes. The cumulative radiation dose was 29.6 mGy. COMPARISON: None. FINDINGS: Images demonstrate needles advanced to the left L5-S1 and S1-S2 neural foramina. Injected contrast extends into soft tissues and the peroneal soft tissues along side the needle tips. IMPRESSION: 1. . Fluoroscopy utilized during left L5-S1 and S1-S2 neural foramina. Reviewed, dictated and finalized at location A.
[2025-07-19 09:09] VITALS: BP 156/105; PULSE 89; RESP 18; TEMP 37.4; O2SAT 99
--- NOTE | 2025-07-19 09:18 | PM.HPGS ---
History of Present Illness History of Present Illness Consent: Risks, benefits, and alternatives have been discussed and questions answered. Patient agrees to proceed with procedure. Chief complaint: Lumbar radiculopathy Narrative: Kalpesh Joiner is a 30 year old male with chronic, recalcitrant and disabling left lumbosacral low back and lower extremity pain secondary to lumbosacral radiculopathy, new neural foraminal stenosis with failure to respond to aggressive conservative measures including PT, oral and topical analgesics, opioid and nonopioid analgesics, rest, time and activity/behavioral modification over the past 1-2 years who presents for therapeutic transforaminal epidural steroid injection of the left L5-S1, S1-S2 levels under fluoroscopic guidance and with contrast control. Review of Systems Review of Systems: Patient denies any new infectious, allergic, cardiopulmonary, neurologic or constitutional symptoms or changes in activity tolerance or exercise capacity including new or progressive SOB/SARAH, peripheral edema, productive cough, dysuria, nausea/vomiting, diarrhea, weight change, fevers/chills/night sweats, new or progressive neurologic deficit, cognitive or mood changes since last seen, except as documented in the HPI. All systems reviewed & are unremarkable except as noted in HPI and below PMFSH Past Medical History Medical History Dorsalgia Lumbar stenosis Lumbar spondylosis Lumbar radiculopathy Anxiety Asthma Essential hypertension Chronic pain of right ankle Attention-deficit hyperactivity disorder, unspecified type Amphetamine or stimulant drug abuse Family History Family History Mother Hypertension Other Diabetes mellitus Social History Social History Smoking status: Former smoker Tobacco type: e-cigarettes/vaping Smokeless tobacco user: chewing tobacco Second hand tobacco smoke exposure: Yes Additional smoking assessment comments: nicotine patches, quit vaping 05/16 Substance use type: does not use Living arrangements: with family Occupation/Education: occupation 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 [employer] Gender identity (if verbalized by the patient): Male Spiritual care concerns: No Agree to blood products: Yes Meds Home Medications and Allergies Home Medications ?Medication ?Instructions ?Recorded ?Confirmed ?Type buspirone 30 mg tablet 30 mg PO BID 04/06/25 07/19/25 History lamotrigine 150 mg tablet 75 mg PO BID 04/06/25 07/19/25 History Allergies Allergy/AdvReac Type Severity Reaction Status Date / Time No Known Allergies Allergy Mild Verified 07/19/25 09:07 Vital Signs Vital Signs - 24 hr 07/19/25 09:09 Temperature 99.4 F Pulse Rate 89 Respiratory Rate 18 Blood Pressure 156/105 H Pulse Oximetry 99 Oxygen Delivery Room Air Exam Narrative: The patient's physical exam is essentially unchanged from prior examination on 06/16/2025. Specifically, patient demonstrates normal lung capacity, tidal volume and respiratory rate without wheezes, crackles, rales or rubs. Heart rate and rhythm are regular without murmurs, gallops or rubs. No JVD. Pulses 2+ globally without increasing peripheral edema. AAOx3 with no evidence of confusion, intoxication or altered mental state, NC/AT without acute distress or altered consciousness. Speech, cognition, mood, insight and judgment at baseline and within normal limits. Assessment and Plan Assessment and plan (1) Lumbosacral radiculopathy: Code(s): M54.17 - Radiculopathy, lumbosacral region Status: Acute Assessment and Plan: Proceed as planned with therapeutic transforaminal epidural steroid injection of the left L5-S1, S1-S2 levels under fluoroscopic guidance and with contrast control. (2) Lumbar stenosis: Code(s): M48.061 - Spinal stenosis, lumbar region without neurogenic claudication Status: Acute (3) Chronic pain: Code(s): G89.29 - Other chronic pain Status: Acute
--- NOTE | 2025-07-19 09:22 | WPDHPUPDATE1 ---
History and Physical Update Update Date/Time: 07/19/25 09:22 History and Physical has been reviewed, including an updated exam of the patient. There are NO changes in the patient's condition. Risks, benefits, and alternatives have been discussed and questions answered. Patient agrees to proceed with procedure.
--- NOTE | 2025-07-19 09:23 | W.PM.PROC2 ---
Procedure Note - Detailed Date of Procedure 07/19/25 Pre-op Diagnosis Lumbosacral radiculopathy Post-op Diagnosis Same Procedure Performed Left lumbosacral Transforaminal Epidural Steroid Injection under Fluoroscopic Guidance and with Contrast Control at L5-S1, S1-S2. Surgeon Adam Sánchez MD Anesthesia Local Description of Procedure INFORMED CONSENT: Risks, benefits and alternatives to the procedure were discussed in detail with the patient who expressed explicit understanding and consent to proceed. Patient was informed verbally and in written form regarding the risks associated with the procedure including the low risk of serious infection, bleeding/bruising, allergic reaction, nerve or organ injury, paralysis, procedural site pain or discomfort, worsening pain and/or mobility, failure to treat and/or disfigurement. The patient expressed explicit understanding and consent to proceed. All materials required for the procedure were available prior to procedure start. Site and side was marked prior to procedure and confirmed in the presence of the patient. PROCEDURE IN DETAIL: The patient was brought to the procedural suite and placed in the prone position. Patient was made comfortable with use of pillows under the head/chest, hips and ankles. Skin overlying the injection site was prepared broadly with ChloraPrep applicator and draped in a sterile manner. Aseptic technique was employed throughout. The endplates of the vertebral body at the site of interest were aligned in the AP view. Ipsilateral oblique angulation was utilized to better visualize the neuroforamen of interest. Local anesthesia was established by infiltration with approximately 5 mL of 0.5% PF lidocaine via a 1-1/2 inch 27-gauge needle. A 22-gauge 5.0 inch Uri (pencil point) spinal needle was advanced until the needle approached the 6 o'clock position on the pedicle just superior to the exiting nerve root. on the left at L5-S1. Lateral view was utilized to confirm appropriate position of the needle tip within the superior and posterior portion of the respective foramen. In an AP view, 1 mL of Omnipaque 300 contrast medium was injected after negative aspiration for CSF, blood or other bodily fluid, showing appropriate neurogram without evidence of intravascular or intrathecal spread of contrast. Digital subtraction imaging was used with an additional 1ml of the same contrast medium to confirm absence of intravascular contrast spread. A 1mL solution containing 5 mg of dexamethasone was injected after negative repeat aspiration. Appropriate spread of the injectate was confirmed with washout of previously injected contrast. No parasthesias were elicited. Needle was removed completely intact without difficulty. The same exact procedure was repeated for all remaining levels on the ipsilateral side, left S1-S2 neuroforamen, modified as necessary to accommodate for the new target location with identical findings and results and no evidence of complication. Images were saved and documented in the patient chart. Patient's skin was cleaned and sterile bandage applied. The patient tolerated the procedure well. The patient was transported to the recovery area in stable condition where they were observed for an appropriate amount of time prior to discharge, without evidence of complication. The patient was instructed to avoid excessive activity for the next 48 hours, including climbing and frequent use of stairs. Showers only for 48 hours. They were instructed not to drive or operate heavy machinery for 24 hours. They are to monitor for severe headaches, fevers, chills, night sweats, erythema/swelling at the site or any other signs of infection, bleeding/bruising, bowel or bladder changes as well as new pain, weakness or numbness in the upper or lower extremity. Should they notice these changes, they are instructed to call our office immediately or report directly to the nearest Emergency Department if no answer or if after posted office hours. COMPLICATIONS: None COMMENTS: None CONTRAST WASTED: 26 mL Omnipaque 300. STEROID WASTED: 0 mg of dexamethasone. Complications No immediate complications Condition Stable Disposition Same day [facility] Billing Surgery - Charge Forward: Surgery Billing
[2025-07-19 09:53] VITALS: BP 177/114; PULSE 86; RESP 20; O2SAT 97
[2025-07-19] MEDS: LIDOCAINE 2% PF LOCAL INJ 5 ML VIAL (09:56)
[2025-07-19] MEDS: DEXAMETHASONE SODIUM PHOSP/PF 10 MG/ML 1 ML VIAL (09:56)
[2025-07-19 09:57] VITALS: BP 169/107; PULSE 74; RESP 14; O2SAT 92
[2025-07-19 10:02] VITALS: BP 147/100; PULSE 75; RESP 20; O2SAT 98
== END 2025-07-19 10:16 | disposition home or self-care (01) ==
PROVIDERS: PCP Nurse Practitioner Family; Visit Provider Anesthesiology Pain Medicine
PROC: (CPT 64483; principal; 2025-07-19 09:50)
DX: M48.07 Spinal stenosis, lumbosacral region (principal); M54.17 Radiculopathy, lumbosacral region; G89.29 Other chronic pain
CPT/HCPCS: 64483; 64484; 99199